=== PATIENT | male | born 1955 | race Caucasian/White ===

== ENCOUNTER 2019-08-05 17:17 | Observation (INO) ==
--- NOTE | 2019-08-05 18:48 | DR.DIZZY ---
HPI Time seen Time Seen by Provider: 08/05/19 18:41 PCP Primary Care Physician: NADJA HPI Comment HPI Comment: PATIENT IS 64YR OLD MALE IN ER WITH FEVER, LOWER BACK PAIN AND DYSURIA. HAD KIDNEY STONE PROCEDURE. PAIN IS 5/10. TAKE PAIN MED AND STILL HU RTING. THERE IS GROSS HEMATURIA STILL. FEVER MUCH HIGHER TODAY. Complaint Chief Complaint Doctor Comments: PATIENT IN ER WITH GENERALIZED WEAKNESS AND FEVER AFTER UROLOGIC PROCEDURE 3 DAYS AGO. PAIN LOWER BACK AND DYSURIA WELL. Chief Complaint:: PT HAD KIDNEY STONE REMOVED ON 08/02/19, SINCE THEN PT HAS BEEN WEAK, FEVER 102, HEADACHE CHLLS, NAUSEATED. PT FAMILY CONCERN BECAUSE PT HAS ONLY WANTED TO STAY IN BED AND REST. Self Treatment fo Chief Complaint: HYDROCODONE FOR PAIN AND FEVER. Source History Provided: Patient and Family Member Mode of Arrival Mode of Arrival: Ambulatory Timing Onset of Chief Complaint: 08/04/19 Context Stroke Symptoms: None PMH PMH Past Medical History: Yes Past Medical History: GERD and Kidney Stones Past Surgical History: Yes Surgical History: Lithotripsy Family History History of Family Medical Conditions: Yes Family Medical History: [place] and Hypertension Social History Does any household member use tobacco: Yes Alcohol Use: None Do you use any recreational Drugs:: No Lives With: Spouse infectious screening In the last 2 months have you had wt loss of >10#?: NO Have you had fever, night sweats or hemotysis?: No Have you traveled outside the country in the last 6 months?: No Isolation: Standard ROS Review of Systems Constitutional: See HPI, Fever, Weakness and Fatigue Eyes: No Symptoms Reported and See HPI ENTM: No Symptoms Reported and See HPI Respiratoy: No Symptoms Reported and See HPI; negative Short of Breath and Wheezing Cardiovascular: No Symptoms Reported and See HPI; negative Chest Pain Gastrointestinal/Abdominal: See HPI and Abdominal Pain; negative Nausea and Vomiting Genitourinary: See HPI, Dysuria and Hematuria Neurological: See HPI and Weakness; negative Headache and Dizziness Musculoskeletal: See HPI and Back Pain Integumentary: No Symptoms Reported and See HPI; negative Change in Color, Rash and Juandice Hematologic/Lymphatic: No Symptoms Reported and See HPI Endocrine: No Symptoms Reported and See HPI; negative Increased Thirst and Increased Urine Psychiatric: No Symptoms Reported and See HPI All Other Systems: Reviewed and Negative PE Vital Signs Vitals: Temperature 98.6 F Pulse Rate 102 Respiratory Rate 18 Blood Pressure [Left Arm] 149/70 Blood Pressure 107/53 O2 Sat by Pulse Oximetry 95 General Limitations: No Limitations General Appearance: Alert and In No Apparent Distress Head Head Exam: Normal Inspection and Atraumatic Eyes Eye exam: Normal Appearance and PERRL; negative Scleral Icterus and Conjunctival Injection Pupils: Regular, Round: Bilateral and Reactive: Bilateral Sclera/Conjunctival: Normal Inspection: Bilateral ENT ENT Exam: Normal Exam, Normal Oropharynx, Normal External Ear Exam and TM's Normal Bilaterally Neck Neck Exam: Normal Inspection and Trachea Midline; negative Tenderness and Lymphadenopathy Chest Chest Inspection: Normal Inspection and Symmetric Chest Wall Rise; negative Tenderness Respiratory Respiratory Exam: Normal Lung Sounds Bilat; negative Accessory Muscle Use, Chest Wall Tenderness and Respiratory Distress Respiratory Exam: Bilateral: Clear to Auscultation Cardiovascular Cardiovascular Exam: Regular Rate, Normal Rhythm and Normal Heart Sounds Abdominal Exam Abdominal Exam: Soft and Tenderness Abdominal Tenderness: RLQ, LLQ, Suprapubic and Moderate Rectal Rectal Exam: Deferred Extremeties Extremities Exam: Normal Inspection Back Back Exam: Normal Inspection Neurologic Neurological Exam: Alert, Oriented X3 and CN II-XII Intact; negative Motor Sen tiffanie Deficit Patient Oriented To: Person, Place and Time Speech: Fluid Speech Cranial Nerve Exam: EOM Function (II, III, IV, ): Normal and Gag reflex (XI): Normal Motor Strength - LUE: 5/5 Motor Strength - RUE: 5/5 Motor Strength - LLE: 5/5 Motor Strength - RLE: 5/5 Upper Motor Neuron Exam: Babinski Sign: Normal Psychiatric Psychiatric Exam: Normal Affect and Normal Mood MDM Differential Diagnosis Differential Diagnosis: Other (UROSEPSIS, LOWER BACK PAIN, LOWER ABDOMINAL PAIN,) COURSE Treatment Treatment: SEE ORDERS. Consultation Consultation Comments: DISCUSSED PATIENT WITH DR. OCHOA AND HE WILL ADMIT PATIENT. ROR Labs Reviewed Laboratory Results Reviewed?: Yes Result Diagrams: 08/07/19 04:47 08/07/19 04:47 Laboratory: 08/05/19 19:00 Urine,Clean Catch Urine Culture - Preliminary WBC 19.9 X10^3/uL (3.6-10.0) H 08/05/19 19:07 RBC 4.28 X10^6/uL (4.7-6.0) L 08/05/19 19:07 Hgb 13.2 g/dL (13.5-18.0) L 08/05/19 19:07 Hct 39.0 % (42.0-54.0) L 08/05/19 19:07 MCV 91.1 fL (80.0-100.0) 08/05/19 19:07 MCH 30.9 pg (27.0-34.0) 08/05/19 19:07 MCHC 33.9 g/dL (33.0-35.0) 08/05/19 19:07 RDW 12.6 % (11.6-16.5) 08/05/19 19:07 Plt Count 198 X10^3/uL (150.0-450.0) 08/05/19 19:07 MPV 8.0 fL (7.4-11.0) 08/05/19 19:07 Neut % (Auto) 85.8 % (42.0-75.0) H 08/05/19 19:07 Lymph % (Auto) 4.6 % (21.0-51.0) L 08/05/19 19:07 [place] % (Auto) 9.3 % (0.0-13.0) 08/05/19 19:07 Eos % (Auto) 0.0 % (0.9-2.9) L 08/05/19 19:07 Baso % (Auto) 0.3 % (0.2-1.0) 08/05/19 19:07 Neut # (Auto) 17.1 x10^3/uL (2.2-4.8) H 08/05/19 19:07 Lymph # (Auto) 0.9 X10^3/uL (1.3-2.9) L 08/05/19 19:07 [place] # (Auto) 1.9 x10^3/uL (0.3-0.8) H 08/05/19 19:07 Eos # (Auto) 0.0 x10^3/uL (0.0-0.2) 08/05/19 19:07 Baso # (Auto) 0.1 X10^3/uL (0.0-0.1) 08/05/19 19:07 Absolute Nucleated RBC 0.0 /100WBC 08/05/19 19:07 Sodium 131 mmol/L (136-145) L 08/05/19 19:07 Corrected Sodium 132 mmol/L (136-145) L 08/05/19 19:07 Potassium 3.7 mmol/L (3.5-5.1) 08/05/19 19:07 Chloride 94 mmol/L (98-107) L 08/05/19 19:07 Carbon Dioxide 30.2 mmol/L (21-32) 08/05/19 19:07 BUN 27 mg/dL (7-18) H 08/05/19 19:07 Creatinine 1.52 mg/dL (0.70-1.30) H 08/05/19 19:07 Est GFR (MDRD) Af Amer 59 (>60) 08/05/19 19:07 Est GFR (MDRD) Non-Af 49 (>60) L 08/05/19 19:07 Glucose 125 mg/dL (65-99) H 08/05/19 19:07 Lactic Acid 1.4 mmol/L (0.4-2.0) 08/05/19 19:07 Calcium 8.6 mg/dL (8.5-10.1) 08/05/19 19:07 Corrected Calcium TNP 08/05/19 19:07 Total Bilirubin 1.50 mg/dL (0.2-1.0) H 08/05/19 19:07 AST 13 Units/L (15-37) L 08/05/19 19:07 ALT 26 Units/L (12-78) 08/05/19 19:07 Alkaline Phosphatase 51 Units/L (46-116) 08/05/19 19:07 Total Protein 7.2 g/dL (6.4-8.2) 08/05/19 19:07 Albumin 3.6 g/dL (3.4-5.0) 08/05/19 19:07 Globulin 3.6 g/dL (2.5-4.5) 08/05/19 19:07 Albumin/Globulin Ratio 1.0 Ratio (1.1-2.1) L 08/05/19 19:07 Specimen Type Clean catch urine 08/05/19 19:00 Urine Color Red (YELLOW) 08/05/19 19:00 Urine Appearance Cloudy (CLEAR) 08/05/19 19:00 Urine pH 6.0 (5.0 - 8.0) 08/05/19 19:00 Ur Specific [place] 1.020 (1.000-1.030) 08/05/19 19:00 Urine Protein 4+ (NEGATIVE) 08/05/19 19:00 Urine Glucose (UA) Negative (NEGATIVE) 08/05/19 19:00 Urine Ketones Negative (NEGATIVE) 08/05/19 19:00 Urine Occult Blood 5+ (NEGATIVE) 08/05/19 19:00 Urine Nitrite Positive (NEGATIVE) 08/05/19 19:00 Urine Bilirubin Negative (NEGATIVE) 08/05/19 19:00 Urine Urobilinogen Normal (NORMAL) 08/05/19 19:00 Ur Leukocyte Esterase 3+ (NEGATIVE) 08/05/19 19:00 Urine RBC Tntc /HPF (0-3) A 08/05/19 19:00 Urine WBC Tntc /HPF (0-5) A 08/05/19 19:00 Ur Squamous Epith Cells Negative /HPF (NEGATIVE) 08/05/19 19:00 Urine Bacteria 1+ /HPF (NEGATIVE) 08/05/19 19:00 Ur Culture Indicated? Yes/culture set up 08/05/19 19:00 Opioid Opioid Risk Tool Age (Jose box if 16-45): No History of Preadolescent Sexual Abuse: No Total: 0 Total Score Risk Category: Low Risk Copyright: Francisco Javier PIERCE predicting aberrant behaviors Instructions Forms: Excuse From Work Patient Portal
[2019-08-05 19:10] LABS: BILIRUBIN,URINE NEGATIVE (NEGATIVE); BLOOD/HEMOGLOBIN,URINE 5+ (NEGATIVE); GLUCOSE, URINE NEGATIVE (NEGATIVE); KETONES,URINE NEGATIVE (NEGATIVE); LEUKOCYTE ESTERASE ,URINE 3+ (NEGATIVE); NITRITES,URINE POSITIVE (NEGATIVE); PROTEIN,URINE 4+ (NEGATIVE); UROBILINOGEN,URINE NORMAL (NORMAL)
[2019-08-05 19:19] LABS: APPEARANCE,URINE CLOUDY (CLEAR); COLOR,URINE RED (YELLOW); RBC,URINE TNTC /HPF (0-3); SQUAMOUS EPITHELIAL CELL,UR NEGATIVE /HPF (NEGATIVE)
[2019-08-05 19:20] LABS: BACTERIA,URINE 1+ /HPF (NEGATIVE)
[2019-08-05 19:24] LABS: BASOPHILS # (AUTO) 0.1 X10^3/uL (0.0-0.1); BASOPHILS % (AUTO) 0.3 % (0.2-1.0); HEMOGLOBIN 13.2 g/dL (13.5-18.0); LYMPHOCYTES # (AUTO) 0.9 X10^3/uL (1.3-2.9); LYMPHOCYTES % (AUTO) 4.6 % (21.0-51.0); MEAN CORPUSCULAR HEMOGLOBIN 30.9 pg (27.0-34.0); MEAN CORPUSCULAR HGB CONC 33.9 g/dL (33.0-35.0); MEAN CORPUSCULAR VOLUME 91.1 fL (80.0-100.0); MONOCYTES # (AUTO) 1.9 x10^3/uL (0.3-0.8); MONOCYTES % (AUTO) 9.3 % (0.0-13.0); NEUTROPHILS # (AUTO) 17.1 x10^3/uL (2.2-4.8); NEUTROPHILS % (AUTO) 85.8 % (42.0-75.0); PLATELET COUNT 198 X10^3/uL (150.0-450.0); RED BLOOD COUNT 4.28 X10^6/uL (4.7-6.0); RED CELL DISTRIBUTION WIDTH 12.6 % (11.6-16.5); WHITE BLOOD COUNT 19.9 X10^3/uL (3.6-10.0)
[2019-08-05 19:32] LABS: ALANINE AMINOTRANSFERASE 26 Units/L (12-78); ALBUMIN 3.6 g/dL (3.4-5.0); ALKALINE PHOSPHATASE 51 Units/L (46-116); ASPARTATE AMINO TRANSFERASE 13 Units/L (15-37); BLOOD UREA NITROGEN 27 mg/dL (7-18); CALCIUM 8.6 mg/dL (8.5-10.1); CARBON DIOXIDE 30.2 mmol/L (21-32); CHLORIDE 94 mmol/L (98-107); COR NA(FOR HYPERGLY) 132 mmol/L (136-145); CREATININE 1.52 mg/dL (0.70-1.30); SODIUM 131 mmol/L (136-145); TOTAL PROTEIN 7.2 g/dL (6.4-8.2); eGFR NON BLACK RACES 49 (>60)
[2019-08-05 19:37] LABS: LACTIC ACID 1.4 mmol/L (0.4-2.0)
[2019-08-05] MEDS ORDERED: ZOFRAN INJ 4 MG VIAL IVP ONE (21:22)
[2019-08-05] MEDS ORDERED: NUBAIN INJ 10 IVP ONE (21:22)
[2019-08-05] MEDS ORDERED: ZOFRAN INJ 4 MG VIAL ONE (21:24)
[2019-08-05] MEDS ORDERED: NUBAIN INJ 10 ONE (21:24)
[2019-08-05] MEDS ORDERED: CIPRO IV 400 MG PREMIX* 400 MG/200 ML IV.SOLN. IV ONE ×2 (22:46→22:59)
[2019-08-05] MEDS ORDERED: NS 1000 ML 1,000 ML ONE (22:59)
[2019-08-05] MEDS ORDERED: NS 1000 ML 1,000 ML IV ONE (23:05)
[2019-08-05] MEDS ORDERED: TYLENOL 500 MG TAB EXTRA STRENGTH PO PRN (23:35)
[2019-08-05] MEDS ORDERED: LR 1000 ML IV 1,000 ML IV ONE (23:48)
[2019-08-05] MEDS: LR 1000 ML IV 1,000 ML IV SCH (23:54)
[2019-08-06 01:04] VITALS: BMI 18.1
[2019-08-06] MEDS ORDERED: ZOFRAN INJ 4 MG VIAL ONE (04:46)
[2019-08-06] MEDS ORDERED: NORCO 5/325 MG TAB ONE (04:46)
[2019-08-06] MEDS: NORCO 5/325 MG TAB PO PRN ×3 (04:53→20:59)
[2019-08-06] MEDS: ZOFRAN INJ 4 MG VIAL IVP PRN (04:53)
[2019-08-06 05:01] LABS: BASOPHILS % (AUTO) 0.2 % (0.2-1.0); HEMATOCRIT 34.2 % (42.0-54.0); HEMOGLOBIN 11.9 g/dL (13.5-18.0); LYMPHOCYTES # (AUTO) 0.9 X10^3/uL (1.3-2.9); LYMPHOCYTES % (AUTO) 4.6 % (21.0-51.0); MEAN CORPUSCULAR HEMOGLOBIN 30.9 pg (27.0-34.0); MEAN CORPUSCULAR HGB CONC 34.6 g/dL (33.0-35.0); MEAN CORPUSCULAR VOLUME 89.2 fL (80.0-100.0); MEAN PLATELET VOLUME 7.9 fL (7.4-11.0); MONOCYTES # (AUTO) 1.8 x10^3/uL (0.3-0.8); MONOCYTES % (AUTO) 9.1 % (0.0-13.0); NEUTROPHILS # (AUTO) 17.1 x10^3/uL (2.2-4.8); NEUTROPHILS % (AUTO) 86.1 % (42.0-75.0); PLATELET COUNT 172 X10^3/uL (150.0-450.0); RED BLOOD COUNT 3.84 X10^6/uL (4.7-6.0); RED CELL DISTRIBUTION WIDTH 12.8 % (11.6-16.5); WHITE BLOOD COUNT 19.8 X10^3/uL (3.6-10.0)
[2019-08-06] MEDS ORDERED: DITROPAN TAB 5 MG PO SCH (06:00)
[2019-08-06] MEDS: LR 1000 ML IV 1,000 ML IV SCH ×3 (06:45→23:43)
[2019-08-06 07:19] LABS: ALANINE AMINOTRANSFERASE 19 Units/L (12-78); ALBUMIN 2.9 g/dL (3.4-5.0); ALKALINE PHOSPHATASE 50 Units/L (46-116); ASPARTATE AMINO TRANSFERASE 9 Units/L (15-37); BLOOD UREA NITROGEN 26 mg/dL (7-18); CALCIUM 8.5 mg/dL (8.5-10.1); CARBON DIOXIDE 29.9 mmol/L (21-32); CHLORIDE 95 mmol/L (98-107); COR CA(FOR HYPOALB) 9.4 mg/dL (8.5-10.1); COR NA(FOR HYPERGLY) 131 mmol/L (136-145); CREATININE 1.17 mg/dL (0.70-1.30); SODIUM 130 mmol/L (136-145); TOTAL PROTEIN 6.3 g/dL (6.4-8.2); eGFR NON BLACK RACES > 60 (>60)
[2019-08-06] MEDS: CIPRO IV 200 MG PREMIX* 200 MG/100 ML BAG IV SCH ×2 (08:16→20:56)
[2019-08-06] MEDS: VSL#3 PO SCH (08:16)
[2019-08-06] MEDS: FLOMAX PO SCH (08:34)
--- NOTE | 2019-08-06 11:38 | DR.H&P ---
H&P History & Physical for Day of: H&P Date: 08/06/19 Chief Complaint Chief Complaint: Fever, Chills, Dysuria Allergies Allergies Allergy/AdvReac Type Severity Reaction Status Date / Time codeine Allergy Verified 08/05/19 17:30 morphine Allergy Verified 08/05/19 17:30 History of Present Illness History of Present Illness: Pt is a 64 yo m presenting with dysuria, fever, chills, weakness. He was recently diagnosed with left nephrolithiasis and treated in [place], [place] on 08/02/19 by lithotripsy and stent placement. He reports that on Tuesday after procedure he started having chills, headache, nausea, and became weak. In ED his labs:Wbc 19.9, Hgb 13.2, Plt 198, Na 131, Cr 1.52, [place] 1.4, UA:+Leuk est, nitrite, TNTC wbc. UrineCX and BloodCX pending. He was st arted on IV abx:Ciprofloxacin. -Due to recent stent placement for nephrolithiasis in the setting of infection will get CT A/P for further evaluation. Holding prescribed oxybutynin, continue flomax. Past Medical History Past Medical History: GERD and Kidney Stones Past Surgical History Surgical History: Lithotripsy Family History Family Medical History: [place], Coronary Artery Disease and Hypertension Social History Does patient currently use any type of tobacco product: No Have you used tobacco products in the last 12 months: Yes Type of Tobacco Use: None Does any household member use tobacco: Yes Alcohol Use: None Drug Use: None Medications Home Medications: codeine Allergy (Verified 08/05/19 17:30) morphine Allergy (Verified 08/05/19 17:30) CONTINUE taking the following medications hydrocodone-acetaminophen 1 tab PO Q6H PRN 08/05/19 [History] oxybutynin chloride 5 mg PO TID 08/05/19 [History] cyproheptadine 4 mg PO BID 08/06/19 [History] famotidine 20 mg PO HS 08/06/19 [History] melatonin 6 mg PO HS 08/06/19 [History] meloxicam 15 mg PO DAILY 08/06/19 [History] ondansetron 8 mg PO Q6HR PRN 08/06/19 [History] tamsulosin 0.4 mg PO HS 02/10/20 [History] zolpidem 10 mg PO HS 08/06/19 [History] Labs Result Diagrams: 08/06/19 04:01 08/06/19 04:01 Labs: 08/05/19 19:00 Urine,Clean Catch Urine Culture - Preliminary Laboratory WBC 19.8 X10^3/uL (3.6-10.0) H 08/06/19 04:01 RBC 3.84 X10^6/uL (4.7-6.0) L 08/06/19 04:01 Hgb 11.9 g/dL (13.5-18.0) L 08/06/19 04:01 Hct 34.2 % (42.0-54.0) L 08/06/19 04:01 MCV 89.2 fL (80.0-100.0) 08/06/19 04:01 MCH 30.9 pg (27.0-34.0) 08/06/19 04:01 MCHC 34.6 g/dL (33.0-35.0) 08/06/19 04:01 RDW 12.8 % (11.6-16.5) 08/06/19 04:01 Plt Count 172 X10^3/uL (150.0-450.0) 08/06/19 04:01 MPV 7.9 fL (7.4-11.0) 08/06/19 04:01 Neut % (Auto) 86.1 % (42.0-75.0) H 08/06/19 04:01 Lymph % (Auto) 4.6 % (21.0-51.0) L 08/06/19 04:01 [place] % (Auto) 9.1 % (0.0-13.0) 08/06/19 04:01 Eos % (Auto) 0.0 % (0.9-2.9) L 08/06/19 04:01 Baso % (Auto) 0.2 % (0.2-1.0) 08/06/19 04:01 Neut # (Auto) 17.1 x10^3/uL (2.2-4.8) H 08/06/19 04:01 Lymph # (Auto) 0.9 X10^3/uL (1.3-2.9) L 08/06/19 04:01 [place] # (Auto) 1.8 x10^3/uL (0.3-0.8) H 08/06/19 04:01 Eos # (Auto) 0.0 x10^3/uL (0.0-0.2) 08/06/19 04:01 Baso # (Auto) 0.0 X10^3/uL (0.0-0.1) 08/06/19 04:01 Absolute Nucleated RBC 0.0 /100WBC 08/06/19 04:01 Sodium 130 mmol/L (136-145) L 08/06/19 04:01 Corrected Sodium 131 mmol/L (136-145) L 08/06/19 04:01 Potassium 3.9 mmol/L (3.5-5.1) 08/06/19 04:01 Chloride 95 mmol/L (98-107) L 08/06/19 04:01 Carbon Dioxide 29.9 mmol/L (21-32) 08/06/19 04:01 BUN 26 mg/dL (7-18) H 08/06/19 04:01 Creatinine 1.17 mg/dL (0.70-1.30) 08/06/19 04:01 Est GFR (MDRD) Af Amer > 60 (>60) 08/06/19 04:01 Est GFR (MDRD) Non-Af > 60 (>60) 08/06/19 04:01 Glucose 124 mg/dL (65-99) H 08/06/19 04:01 Lactic Acid 1.4 mmol/L (0.4-2.0) 08/05/19 19:07 Calcium 8.5 mg/dL (8.5-10.1) 08/06/19 04:01 Corrected Calcium 9.4 mg/dL (8.5-10.1) 08/06/19 04:01 Total Bilirubin 1.30 mg/dL (0.2-1.0) H 08/06/19 04:01 AST 9 Units/L (15-37) L 08/06/19 04:01 ALT 19 Units/L (12-78) 08/06/19 04:01 Alkaline Phosphatase 50 Units/L (46-116) 08/06/19 04:01 Total Protein 6.3 g/dL (6.4-8.2) L 08/06/19 04:01 Albumin 2.9 g/dL (3.4-5.0) L 08/06/19 04:01 Globulin 3.4 g/dL (2.5-4.5) 08/06/19 04:01 Albumin/Globulin Ratio 0.9 Ratio (1.1-2.1) L 08/06/19 04:01 Specimen Type Clean catch urine 08/05/19 19:00 Urine Color Red (YELLOW) 08/05/19 19:00 Urine Appearance Cloudy (CLEAR) 08/05/19 19:00 Urine pH 6.0 (5.0 - 8.0) 08/05/19 19:00 Ur Specific [place] 1.020 (1.000-1.030) 08/05/19 19:00 Urine Protein 4+ (NEGATIVE) 08/05/19 19:00 Urine Glucose (UA) Negative (NEGATIVE) 08/05/19 19:00 Urine Ketones Negative (NEGATIVE) 08/05/19 19:00 Urine Occult Blood 5+ (NEGATIVE) 08/05/19 19:00 Urine Nitrite Positive (NEGATIVE) 08/05/19 19:00 Urine Bilirubin Negative (NEGATIVE) 08/05/19 19:00 Urine Urobilinogen Normal (NORMAL) 08/05/19 19:00 Ur Leukocyte Esterase 3+ (NEGATIVE) 08/05/19 19:00 Urine RBC Tntc /HPF (0-3) A 08/05/19 19:00 Urine WBC Tntc /HPF (0-5) A 08/05/19 19:00 Ur Squamous Epith Cells Negative /HPF (NEGATIVE) 08/05/19 19:00 Urine Bacteria 1+ /HPF (NEGATIVE) 08/05/19 19:00 Ur Culture Indicated? Yes/culture set up 08/05/19 19:00 Review of Systems Constitutional: Fever, Chills and Weakness Eyes: No Symptoms Reported ENT: No Symptoms Reported Respiratory: No Symptoms Reported Cardiovascular: No Symptoms Reported Gastrointestinal: Abdominal Pain (mild suprapubic) Genitourinary: Dysuria Musculoskeletal: No Symptoms Reported Skin: No Symptoms Reported Neurological: No Symptoms Reported Physical Exam Vital Signs: Temperature 99.6 F Pulse Rate [Brachial] 77 Pulse Rate 85 Respiratory Rate 20 Blood Pressure [Left Arm] 107/59 Blood Pressure 112/55 O2 Sat by Pulse Oximetry 98 Oriented: Normal Eyes: Normal Ear: Normal Nose: Normal Respiratory: Clear Throughout Cardiovascular: Normal : Dysuria Auscultation: Bowel Sounds: Normal Palpation: Normal Tenderness: Suprapubic (mild) Skin: Normal Musculoskeletal: Normal Psychiatric: Normal Mood Description: Calm Speech Pattern: Clear Assessment/Plan (1) Acute cystitis: Qualifiers: Hematuria presence: with hematuria Qualified Code(s): N30.01 - Acute cystitis with hematuria Status: Acute Plan: IVF Abx:Ciprofloxacin UrineCx pending F/u Ct abd/pelv (2) Generalized weakness: Status: Acute (3) History of kidney stones: Status: Acute Review H&P Reviewed: Yes Patient was examined?: Yes
--- NOTE | 2019-08-06 12:27 | CT ---
HISTORY:Flank pain, febrileStudy: CT abdomen and pelvis without contrastComparison:NoneTechnique: Multiple axial images of the abdomen and pelvis were obtained without IV contrast. Oral contrast was not administered. Dose reduction techniques including Automated Exposure Control (AEC) and adjustment of mA and kV were utilized.FINDINGS:Please note evaluation is limited without IV contrast.Pectus excavatum is noted. The lung bases are clear. There is a trace left effusion. The liver, spleen, pancreas, and adrenal glands are unremarkable in their unenhanced appearance. The gallbladder is normal. The right kidney and ureter are unremarkable. There is left-sided nephroureteral stent in place. There is mild left hydronephrosis and perinephric stranding with numerous stones in the left kidney measuring up to 1.5 cm at the lower pole. The distal aspect of the stent abutting the posterior bladder wall at the UVJ.No free intraperitoneal air. No evidence of intestinal obstruction or inflammation. Appendix is normal. Moderate retained stool is present throughout the colon. No ascites.The soft tissues and osseous structures are intact. Limited evaluation of vascular structures due to lack of IV contrast. No pathologically enlarged lymph nodes are identified. Prostate gland is enlarged.IMPRESSION ABDOMEN/PELVIS:1. Left-sided nephroureteral stent in place with the distal aspect the stent abutting the posterior bladder wall at the UVJ. There is mild left hydronephrosis and perinephric stranding therefore cannot exclude component of infection stent malfunction.2. Multiple nonobstructing left renal calculi measuring up to 1.5 cm.3. Enlarged prostate gland.4. Trace left pleural effusion.Electronically signed by: RFANKO COMBS (Aug 06, 2019 12:26:33)
[2019-08-06] MEDS: COLACE CAP 100 MG PO SCH (20:56)
[2019-08-06] MEDS: MILK OF MAGNESIA PO SCH (20:57)
[2019-08-06] MEDS ORDERED: PEPCID TAB 20 MG PO SCH (21:00)
[2019-08-07 05:45] LABS: BLOOD UREA NITROGEN 16 mg/dL (7-18); CALCIUM 8.3 mg/dL (8.5-10.1); CARBON DIOXIDE 32.8 mmol/L (21-32); CHLORIDE 98 mmol/L (98-107); CREATININE 0.92 mg/dL (0.70-1.30); SODIUM 133 mmol/L (136-145); eGFR NON BLACK RACES > 60 (>60)
[2019-08-07 05:47] LABS: BASOPHILS % (AUTO) 0 % (0.2-1.0); EOSINOPHILS # (AUTO) 0.1 x10^3/uL (0.0-0.2); EOSINOPHILS % (AUTO) 0.4 % (0.9-2.9); HEMATOCRIT 31.1 % (42.0-54.0); LYMPHOCYTES % (AUTO) 6.7 % (21.0-51.0); MEAN CORPUSCULAR HEMOGLOBIN 31.3 pg (27.0-34.0); MEAN CORPUSCULAR HGB CONC 35.2 g/dL (33.0-35.0); MEAN CORPUSCULAR VOLUME 88.8 fL (80.0-100.0); MEAN PLATELET VOLUME 8.3 fL (7.4-11.0); MONOCYTES # (AUTO) 1.3 x10^3/uL (0.3-0.8); MONOCYTES % (AUTO) 9.3 % (0.0-13.0); NEUTROPHILS # (AUTO) 12.2 x10^3/uL (2.2-4.8); NEUTROPHILS % (AUTO) 83.6 % (42.0-75.0); PLATELET COUNT 178 X10^3/uL (150.0-450.0); RED BLOOD COUNT 3.51 X10^6/uL (4.7-6.0); RED CELL DISTRIBUTION WIDTH 12.6 % (11.6-16.5); WHITE BLOOD COUNT 14.5 X10^3/uL (3.6-10.0)
[2019-08-07] MEDS ORDERED: K-RIDER 10 MEQ/NS 100 ML 10 MEQ/100 ML BAG IV PRN (06:10)
[2019-08-07] MEDS ORDERED: POTASSIUM CHLORIDE LIQ 20 MEQ UDC PO PRN (06:10)
[2019-08-07] MEDS ORDERED: KLOR-CON PO PRN (06:10)
[2019-08-07] MEDS ORDERED: POTASSIUM CHL 40 MEQ/NS 0.45% 500 ML IV PRN (06:10)
[2019-08-07] MEDS ORDERED: MICRO K EXTEN CAP 10 MEQ PO PRN (06:10)
[2019-08-07] MEDS ORDERED: MAGNESIUM SULFATE 1 GRAM/100 mL PREMIX 1 GM/100 ML BAG IV PRN (06:10)
[2019-08-07] MEDS ORDERED: K-DUR TAB 20 MEQ PO PRN (06:10)
[2019-08-07] MEDS ORDERED: POTASSIUM CHL 60 MEQ/NS 0.45% 500 ML IV PRN (06:10)
--- NOTE | 2019-08-07 09:00 | PCM.PROG ---
Progress Note Progress Note for Day of Date of Exam: 08/07/19 Subjective Subjective: Pt is a 64 yo m admitted for pyelonephritis by CT abd/pelv yesterday that showed perinephric stranding on left, and multiple non-obstructing L renal calculi up to 1.5cm. He has remained afebrile, his leukocytosis is improving. Wbc 19.9>14.5, Cr: 1.52>1.17>0.92, UrineCX prelim:>100K gram negative rods. BloodCX NGTD. IV abx:Ciprofloxacin will increase dose for pyelonephritis. Pt reports not having a bowel movement since last , feels bloated with loss of appetite. He has been given milk of magnesium and Colace. Will get a KUB and if necessary order soaps suds enema if still no bowel movement later today. Pt states he does have follow up with urology this Tuesday in [place]. Continue to monitor and follow up labs in morning. Past Medical Family Social History Past Med/Fam/Surg Hx: No changes since H&P Allergies: Allergies codeine Allergy (Verified 08/05/19 17:30) morphine Allergy (Verified 08/05/19 17:30) Review of Systems ROS: No change since H&P Vital Signs and I&O's Vital Signs: Temperature 98.7 F Pulse Rate [Brachial] 77 Pulse Rate 79 Respiratory Rate 20 Blood Pressure [Left Arm] 107/59 Blood Pressure 111/59 O2 Sat by Pulse Oximetry 97 Intake and Output: Intake & Output 08/04/19 08/05/19 08/06/19 08/07/19 23:59 23:59 23:59 23:59 Intake Total 5077 / 5077 886 / 886 Output Total 1125 / 1125 400 / 400 Balance 3952 / 3952 486 / 486 Physical Exam Oriented: Normal Eyes: Normal Ear: Normal Nose: Normal Respiratory: Normal Cardiovascular: Normal : Dysuria Auscultation: Bowel Sounds: Normal Tenderness: Suprapubic (mild) Skin: Normal Musculoskeletal: Normal Psychiatric: Normal Mood Description: Calm Speech Pattern: Clear and Appropriate Laboratory and Diagnostics Result Diagrams: 08/07/19 04:47 08/07/19 04:47 Labs: 08/05/19 19:00 Urine,Clean Catch Urine Culture - Preliminary Laboratory WBC 14.5 X10^3/uL (3.6-10.0) H 08/07/19 04:47 RBC 3.51 X10^6/uL (4.7-6.0) L 08/07/19 04:47 Hgb 11.0 g/dL (13.5-18.0) L 08/07/19 04:47 Hct 31.1 % (42.0-54.0) L 08/07/19 04:47 MCV 88.8 fL (80.0-100.0) 08/07/19 04:47 MCH 31.3 pg (27.0-34.0) 08/07/19 04:47 MCHC 35.2 g/dL (33.0-35.0) H 08/07/19 04:47 RDW 12.6 % (11.6-16.5) 08/07/19 04:47 Plt Count 178 X10^3/uL (150.0-450.0) 08/07/19 04:47 MPV 8.3 fL (7.4-11.0) 08/07/19 04:47 Neut % (Auto) 83.6 % (42.0-75.0) H 08/07/19 04:47 Lymph % (Auto) 6.7 % (21.0-51.0) L 08/07/19 04:47 [place] % (Auto) 9.3 % (0.0-13.0) 08/07/19 04:47 Eos % (Auto) 0.4 % (0.9-2.9) L 08/07/19 04:47 Baso % (Auto) 0 % (0.2-1.0) L 08/07/19 04:47 Neut # (Auto) 12.2 x10^3/uL (2.2-4.8) H 08/07/19 04:47 Lymph # (Auto) 1.0 X10^3/uL (1.3-2.9) L 08/07/19 04:47 [place] # (Auto) 1.3 x10^3/uL (0.3-0.8) H 08/07/19 04:47 Eos # (Auto) 0.1 x10^3/uL (0.0-0.2) 08/07/19 04:47 Baso # (Auto) 0.0 X10^3/uL (0.0-0.1) 08/07/19 04:47 Absolute Nucleated RBC 0.0 /100WBC 08/07/19 04:47 Sodium 133 mmol/L (136-145) L 08/07/19 04:47 Corrected Sodium TNP 08/07/19 04:47 Potassium 3.7 mmol/L (3.5-5.1) 08/07/19 04:47 Chloride 98 mmol/L (98-107) 08/07/19 04:47 Carbon Dioxide 32.8 mmol/L (21-32) H 08/07/19 04:47 BUN 16 mg/dL (7-18) 08/07/19 04:47 Creatinine 0.92 mg/dL (0.70-1.30) 08/07/19 04:47 Est GFR (MDRD) Af Amer > 60 (>60) 08/07/19 04:47 Est GFR (MDRD) Non-Af > 60 (>60) 08/07/19 04:47 Glucose 107 mg/dL (65-99) H 08/07/19 04:47 Lactic Acid 1.4 mmol/L (0.4-2.0) 08/05/19 19:07 Calcium 8.3 mg/dL (8.5-10.1) L 08/07/19 04:47 Corrected Calcium 9.4 mg/dL (8.5-10.1) 08/06/19 04:01 Magnesium 1.9 mg/dL (1.7-2.9) 08/07/19 04:47 Total Bilirubin 1.30 mg/dL (0.2-1.0) H 08/06/19 04:01 AST 9 Units/L (15-37) L 08/06/19 04:01 ALT 19 Units/L (12-78) 08/06/19 04:01 Alkaline Phosphatase 50 Units/L (46-116) 08/06/19 04:01 Total Protein 6.3 g/dL (6.4-8.2) L 08/06/19 04:01 Albumin 2.9 g/dL (3.4-5.0) L 08/06/19 04:01 Globulin 3.4 g/dL (2.5-4.5) 08/06/19 04:01 Albumin/Globulin Ratio 0.9 Ratio (1.1-2.1) L 08/06/19 04:01 Specimen Type Clean catch urine 08/05/19 19:00 Urine Color Red (YELLOW) 08/05/19 19:00 Urine Appearance Cloudy (CLEAR) 08/05/19 19:00 Urine pH 6.0 (5.0 - 8.0) 08/05/19 19:00 Ur Specific [place] 1.020 (1.000-1.030) 08/05/19 19:00 Urine Protein 4+ (NEGATIVE) 08/05/19 19:00 Urine Glucose (UA) Negative (NEGATIVE) 08/05/19 19:00 Urine Ketones Negative (NEGATIVE) 08/05/19 19:00 Urine Occult Blood 5+ (NEGATIVE) 08/05/19 19:00 Urine Nitrite Positive (NEGATIVE) 08/05/19 19:00 Urine Bilirubin Negative (NEGATIVE) 08/05/19 19:00 Urine Urobilinogen Normal (NORMAL) 08/05/19 19:00 Ur Leukocyte Esterase 3+ (NEGATIVE) 08/05/19 19:00 Urine RBC Tntc /HPF (0-3) A 08/05/19 19:00 Urine WBC Tntc /HPF (0-5) A 08/05/19 19:00 Ur Squamous Epith Cells Negative /HPF (NEGATIVE) 08/05/19 19:00 Urine Bacteria 1+ /HPF (NEGATIVE) 08/05/19 19:00 Ur Culture Indicated? Yes/culture set up 08/05/19 19:00 Plan (1) Pyelonephritis of left kidney: Status: Acute (2) Acute cystitis: Status: Acute Qualifiers: Hematuria presence: with hematuria Qualified Code(s): N30.01 - Acute cystitis with hematuria Plan: IVF Abx:Ciprofloxacin UrineCx pending F/u Ct abd/pelv (3) Generalized weakness: Status: Acute (4) History of kidney stones: Status: Acute (5) AMRIT (acute kidney injury): Status: Acute
[2019-08-07] MEDS: VSL#3 PO SCH (09:10)
[2019-08-07] MEDS: FLOMAX PO SCH (09:10)
[2019-08-07] MEDS: NS 1000 ML 1,000 ML IV SCH ×2 (09:10→18:25)
[2019-08-07] MEDS: CIPRO IV 400 MG PREMIX* 400 MG/200 ML IV.SOLN. IV SCH ×2 (09:10→21:00)
--- NOTE | 2019-08-07 10:07 | RAD ---
HISTORYAbdominal pain, urosepsis lithotripsy, left renal stentSTUDYKUBCOMPARISONCT scan August 06 2011.FINDINGSA double-J ureteral stents in place in good position unchanged from the CT scan performed yesterday August 06, 2019 stone fragments are seen in the mid to lower pole left kidney within the calices. No ureteral stones are seen. No right renal calculi or bladder calculi are observed.IMPRESSIONLeft ureteral stent in place. Multiple left renal calculi mid to lower pole left kidney but no ureteral stones identified no bladder stones identified.Electronically signed by: LUDA MADRID (Aug 07, 2019 10:05:21)
[2019-08-07] MEDS: LR 1000 ML IV 1,000 ML IV SCH (10:40)
[2019-08-07] MEDS ORDERED: CHRONULAC PO ONE (12:01)
[2019-08-07] MEDS: ZOFRAN INJ 4 MG VIAL IVP PRN ×2 (14:37→21:00)
[2019-08-07] MEDS ORDERED: ZANTAC PO SCH (15:00)
[2019-08-07] MEDS: NexIUM PO SCH (15:19)
[2019-08-07] MEDS ORDERED: AMBIEN PO SCH (21:00)
[2019-08-07] MEDS: MILK OF MAGNESIA PO SCH (21:16)
[2019-08-07] MEDS: COLACE CAP 100 MG PO SCH (21:16)
[2019-08-08] MEDS: NS 1000 ML 1,000 ML IV SCH ×2 (03:53→08:28)
[2019-08-08 05:31] LABS: BASOPHILS % (AUTO) 0.1 % (0.2-1.0); EOSINOPHILS # (AUTO) 0.1 x10^3/uL (0.0-0.2); EOSINOPHILS % (AUTO) 0.8 % (0.9-2.9); HEMATOCRIT 28.7 % (42.0-54.0); HEMOGLOBIN 10.1 g/dL (13.5-18.0); LYMPHOCYTES # (AUTO) 1.1 X10^3/uL (1.3-2.9); LYMPHOCYTES % (AUTO) 10.3 % (21.0-51.0); MEAN CORPUSCULAR HEMOGLOBIN 31.7 pg (27.0-34.0); MEAN CORPUSCULAR HGB CONC 35.2 g/dL (33.0-35.0); MEAN CORPUSCULAR VOLUME 90.3 fL (80.0-100.0); MONOCYTES # (AUTO) 1.4 x10^3/uL (0.3-0.8); MONOCYTES % (AUTO) 13.3 % (0.0-13.0); NEUTROPHILS # (AUTO) 7.9 x10^3/uL (2.2-4.8); NEUTROPHILS % (AUTO) 75.5 % (42.0-75.0); PLATELET COUNT 198 X10^3/uL (150.0-450.0); RED BLOOD COUNT 3.17 X10^6/uL (4.7-6.0); RED CELL DISTRIBUTION WIDTH 12.8 % (11.6-16.5); WHITE BLOOD COUNT 10.5 X10^3/uL (3.6-10.0)
[2019-08-08 05:40] LABS: BLOOD UREA NITROGEN 10 mg/dL (7-18); CALCIUM 7.9 mg/dL (8.5-10.1); CARBON DIOXIDE 29.6 mmol/L (21-32); CHLORIDE 101 mmol/L (98-107); CREATININE 0.83 mg/dL (0.70-1.30); SODIUM 135 mmol/L (136-145); eGFR NON BLACK RACES > 60 (>60)
--- NOTE | 2019-08-08 08:21 | W.DIS.FURT ---
Summary of Discharge Discharge Summary of Date Date of Exam: 08/08/19 Admission Date Date of Admission: 08/05/19 Admission Diagnosis Hospital Course: Pt is a 64 yo m admitted for pyelonephritis after having left ureteral stent placement for multiple kidney stones/ nephrolithiasis in [place], [place] [address] abd/pelv that showed perinephric stranding on left, and multiple non- obstructing L renal calculi up to 1.5cm. He received IV ciprofloxacin w/ significant improvement. On discharge pt afebrile, vitals stable, physical exam unremarkable, w/ improving leukocytosis. Wbc 19.9>14.5>10.5, Cr: 1.17>0.92>0.83, UrineCX:pseudomonas a. susceptible to ciprofloxacin. BloodCX NGTD. Pt discharged with Ciprofloxacin PO 500mg BID x7days. Pt to follow up with urology this Tuesday in [place]. F/u w/ pcp in 1 week. Vital Signs: Vital Signs (72 hours) 08/05/19 17:26 08/05/19 21:30 08/05/19 23:25 Temperature 98.6 F Pulse Rate 102 H Pulse Rate [Brachial] 77 Respiratory Rate 20 18 18 Blood Pressure 107/53 Blood Pressure [Left Arm] 107/59 O2 Sat by Pulse Oximetry 95 100 08/05/19 23:30 08/06/19 04:00 08/06/19 04:53 Temperature 98.4 F 98.4 F Pulse Rate 87 96 H Pulse Rate [Brachial] Respiratory Rate 20 18 20 Blood Pressure 121/56 118/57 Blood Pressure [Left Arm] O2 Sat by Pulse Oximetry 97 100 08/06/19 05:53 08/06/19 08:00 08/06/19 12:00 Temperature 99.6 F 99.9 F H Pulse Rate 85 79 Pulse Rate [Brachial] Respiratory Rate 16 20 20 Blood Pressure 112/55 110/79 Blood Pressure [Left Arm] O2 Sat by Pulse Oximetry 98 97 08/06/19 14:00 08/06/19 15:00 08/06/19 16:00 Temperature 99.5 F Pulse Rate 79 Pulse Rate [Brachial] Respiratory Rate 20 16 20 Blood Pressure 113/57 Blood Pressure [Left Arm] O2 Sat by Pulse Oximetry 96 08/06/19 20:00 08/06/19 20:59 08/06/19 21:59 Temperature 98.3 F Pulse Rate 88 Pulse Rate [Brachial] Respiratory Rate 22 20 22 Blood Pressure 123/58 Blood Pressure [Left Arm] O2 Sat by Pulse Oximetry 96 08/07/19 00:00 08/07/19 04:00 08/07/19 08:00 Temperature 98.8 F 98.7 F 100.1 F H Pulse Rate 80 79 91 H Pulse Rate [Brachial] Respiratory Rate 16 20 16 Blood Pressure 99/55 111/59 134/63 Blood Pressure [Left Arm] O2 Sat by Pulse Oximetry 100 97 96 08/07/19 12:00 08/07/19 15:47 08/07/19 20:00 Temperature 98.9 F 99.7 F H 100.0 F H Pulse Rate 80 79 76 Pulse Rate [Brachial] Respiratory Rate 16 16 20 Blood Pressure 131/63 121/60 122/62 Blood Pressure [Left Arm] O2 Sat by Pulse Oximetry 96 98 99 08/07/19 23:55 08/08/19 04:00 Temperature 98.8 F 99.1 F Pulse Rate 62 54 L Pulse Rate [Brachial] Respiratory Rate 20 20 Blood Pressure 111/57 106/52 Blood Pressure [Left Arm] O2 Sat by Pulse Oximetry 98 98 Labs: Laboratory Last Values WBC 10.5 X10^3/uL (3.6-10.0) H 08/08/19 03:58 RBC 3.17 X10^6/uL (4.7-6.0) L 08/08/19 03:58 Hgb 10.1 g/dL (13.5-18.0) L 08/08/19 03:58 Hct 28.7 % (42.0-54.0) L 08/08/19 03:58 MCV 90.3 fL (80.0-100.0) 08/08/19 03:58 MCH 31.7 pg (27.0-34.0) 08/08/19 03:58 MCHC 35.2 g/dL (33.0-35.0) H 08/08/19 03:58 RDW 12.8 % (11.6-16.5) 08/08/19 03:58 Plt Count 198 X10^3/uL (150.0-450.0) 08/08/19 03:58 MPV 9.0 fL (7.4-11.0) 08/08/19 03:58 Neut % (Auto) 75.5 % (42.0-75.0) H 08/08/19 03:58 Lymph % (Auto) 10.3 % (21.0-51.0) L 08/08/19 03:58 [place] % (Auto) 13.3 % (0.0-13.0) H 08/08/19 03:58 Eos % (Auto) 0.8 % (0.9-2.9) L 08/08/19 03:58 Baso % (Auto) 0.1 % (0.2-1.0) L 08/08/19 03:58 Neut # (Auto) 7.9 x10^3/uL (2.2-4.8) H 08/08/19 03:58 Lymph # (Auto) 1.1 X10^3/uL (1.3-2.9) L 08/08/19 03:58 [place] # (Auto) 1.4 x10^3/uL (0.3-0.8) H 08/08/19 03:58 Eos # (Auto) 0.1 x10^3/uL (0.0-0.2) 08/08/19 03:58 Baso # (Auto) 0.0 X10^3/uL (0.0-0.1) 08/08/19 03:58 Absolute Nucleated RBC 0.0 /100WBC 08/08/19 03:58 Sodium 135 mmol/L (136-145) L 08/08/19 03:58 Corrected Sodium TNP 08/08/19 03:58 Potassium 3.5 mmol/L (3.5-5.1) 08/08/19 03:58 Chloride 101 mmol/L (98-107) 08/08/19 03:58 Carbon Dioxide 29.6 mmol/L (21-32) 08/08/19 03:58 BUN 10 mg/dL (7-18) 08/08/19 03:58 Creatinine 0.83 mg/dL (0.70-1.30) 08/08/19 03:58 Est GFR (MDRD) Af Amer > 60 (>60) 08/08/19 03:58 Est GFR (MDRD) Non-Af > 60 (>60) 08/08/19 03:58 Glucose 96 mg/dL (65-99) 08/08/19 03:58 Lactic Acid 1.4 mmol/L (0.4-2.0) 08/05/19 19:07 Calcium 7.9 mg/dL (8.5-10.1) L 08/08/19 03:58 Corrected Calcium 9.4 mg/dL (8.5-10.1) 08/06/19 04:01 Magnesium 1.9 mg/dL (1.7-2.9) 08/07/19 04:47 Total Bilirubin 1.30 mg/dL (0.2-1.0) H 08/06/19 04:01 AST 9 Units/L (15-37) L 08/06/19 04:01 ALT 19 Units/L (12-78) 08/06/19 04:01 Alkaline Phosphatase 50 Units/L (46-116) 08/06/19 04:01 Total Protein 6.3 g/dL (6.4-8.2) L 08/06/19 04:01 Albumin 2.9 g/dL (3.4-5.0) L 08/06/19 04:01 Globulin 3.4 g/dL (2.5-4.5) 08/06/19 04:01 Albumin/Globulin Ratio 0.9 Ratio (1.1-2.1) L 08/06/19 04:01 Specimen Type Clean catch urine 08/05/19 19:00 Urine Color Red (YELLOW) 08/05/19 19:00 Urine Appearance Cloudy (CLEAR) 08/05/19 19:00 Urine pH 6.0 (5.0 - 8.0) 08/05/19 19:00 Ur Specific Equality 1.020 (1.000-1.030) 08/05/19 19:00 Urine Protein 4+ (NEGATIVE) 08/05/19 19:00 Urine Glucose (UA) Negative (NEGATIVE) 08/05/19 19:00 Urine Ketones Negative (NEGATIVE) 08/05/19 19:00 Urine Occult Blood 5+ (NEGATIVE) 08/05/19 19:00 Urine Nitrite Positive (NEGATIVE) 08/05/19 19:00 Urine Bilirubin Negative (NEGATIVE) 08/05/19 19:00 Urine Urobilinogen Normal (NORMAL) 08/05/19 19:00 Ur Leukocyte Esterase 3+ (NEGATIVE) 08/05/19 19:00 Urine RBC Tntc /HPF (0-3) A 08/05/19 19:00 Urine WBC Tntc /HPF (0-5) A 08/05/19 19:00 Ur Squamous Epith Cells Negative /HPF (NEGATIVE) 08/05/19 19:00 Urine Bacteria 1+ /HPF (NEGATIVE) 08/05/19 19:00 Ur Culture Indicated? Yes/culture set up 08/05/19 19:00 Reason For Visit: UROSEPSIS, FEBRILE ILLNESS IN ADULT PATIENT, Discharge Date Discharge Date: 08/08/19 Discharge Diagnosis All Active Problems (Updated 08/07/19 @ 09:02 by Ray Walters) Pyelonephritis of left kidney (Acute) AMRIT (acute kidney injury) (Acute) History of kidney stones (Acute) Acute cystitis (Acute) Acute confusion (Acute) Ataxia (Acute) Generalized weakness (Acute) Plan of Treatment: Continue with present treatment and follow up plan. Pt is to keep follow up appointment as instructed and take medications as ordered. Discharge Medications Discharge Medications: codeine Allergy (Verified 08/05/19 17:30) morphine Allergy (Verified 08/05/19 17:30) CONTINUE taking the following medications hydrocodone-acetaminophen 1 tab PO Q6H PRN 08/05/19 [History] cyproheptadine 4 mg PO BID 08/06/19 [History] famotidine 20 mg PO HS 08/06/19 [History] melatonin 6 mg PO HS 08/06/19 [History] meloxicam 15 mg PO DAILY 08/06/19 [History] ondansetron 8 mg PO Q6HR PRN 08/06/19 [History] tamsulosin 0.4 mg PO HS 08/06/19 [History] zolpidem 10 mg PO HS 08/06/19 [History] New Prescriptions ciprofloxacin HCl 500 mg PO BID 7 Days #14 tab 08/08/19 [Rx] Discharge Disposition Assessment: Patient stable no acute distress noted at time of discharge. Discharge Disposition: Home
[2019-08-08] MEDS: CIPRO IV 400 MG PREMIX* 400 MG/200 ML IV.SOLN. IV SCH (08:26)
[2019-08-08] MEDS: NexIUM PO SCH (08:27)
[2019-08-08] MEDS: FLOMAX PO SCH (08:27)
[2019-08-08] MEDS: VSL#3 PO SCH (08:27)
[2019-08-08 10:15] VITALS: BP 114/57
== END 2019-08-08 10:30 | disposition home or self-care (01) ==
LOC: ICU 17:24 → ER 17:24 → ICU 23:27
PROVIDERS: ADMIT Family Medicine; ATTEND Family Medicine
DX: N10 Acute pyelonephritis; B96.5 Pseudomonas (aeruginosa) (mallei) (pseudomallei) as the cause of diseases classified elsewhere; N20.0 Calculus of kidney; N30.01 Acute cystitis with hematuria; N40.1 Benign prostatic hyperplasia with lower urinary tract symptoms; N17.8 Other acute kidney failure; J90 Pleural effusion, not elsewhere classified
CPT/HCPCS: 36415; 74000; 74018; 74176; 80048; 80053; 81001; 83605; 83735; 85025; 87040; 87086; 87088; 87186; 96360; 96361; 96365; 96374; 96375; 97161; 99284; A4222; G0378; J0744; J2300; J2405; J7030; J7120